=== PATIENT | female | born 1945 | race Caucasian/White ===

== ENCOUNTER 2017-02-11 08:51 | Day surgery (SDC) | payer MEDICARE, BC ==
[~2017-02-11 08:51] MED LIST: Acetaminophen 325 MG Tab PO PRN; Cataract Ophth Solution EYELF ONE; Povidone-Iodine 5% Sterile Ophth Soln 30 ML Bottle EYELF ONE
[2017-02-11] MEDS ORDERED: Phenylephrine 10% Ophth Soln 5 ML Bot EYELF PRN (09:00)
[2017-02-11] MEDS ORDERED: Acetaminophen 325 MG Tab PO PRN (09:00)
[2017-02-11] MEDS ORDERED: Phenylephrine 10% Ophth Soln 5 ML Bot EYELF ONE (09:00)
[2017-02-11] MEDS ORDERED: Sodium Chloride 0.9% 10 ML Syringe FLUSH PRN (09:00)
[2017-02-11] MEDS ORDERED: Proparacaine 0.5% Ophth Soln 15 ML Bottle EYELF ONE (09:00)
[2017-02-11] MEDS ORDERED: Ondansetron 4 MG/2 ML SDV IVPUSH PRN (09:00)
[2017-02-11] MEDS ORDERED: Cataract Ophth Solution EYELF ONE (09:00)
[2017-02-11] MEDS ORDERED: Timolol Maleate 0.5% Ophth Soln 5 ML Bottle EYELF ONE (09:00)
[2017-02-11] MEDS ORDERED: Povidone-Iodine 5% Sterile Ophth Soln 30 ML Bottle EYELF ONE ×2 (09:00→10:02)
[2017-02-11] MEDS ORDERED: Moxifloxacin 0.5% Ophth Soln 3 ML Bottle EYELF ONE (09:00)
[2017-02-11] MEDS ORDERED: Tetracaine 0.5% 2 ML Bottle EYELF ONE (10:00)
[2017-02-11] MEDS ORDERED: Dexamethasone/Neomycin/Polymyxin B Ophth Oint 3.5 GM Tube EYELF ONE (10:02)
[2017-02-11] MEDS ORDERED: Apraclonidine 0.5% Ophth Soln 5 ML Bot EYELF ONE (10:02)
[2017-02-11] MEDS ORDERED: Lidocaine 1% 30 ML SDV ONE (10:02)
[2017-02-11] MEDS ORDERED: Balanced Salt Solution Ophth Irrig 500 ML Bottle IOCULAR ONE (10:03)
[2017-02-11] MEDS ORDERED: Chondroitin Sulfate/Hyaluronate Sodium Ophth Inj 0.5 ML Syringe IOCULAR ONE (10:03)
[2017-02-11] MEDS ORDERED: Vancomycin 500 MG SDV EYELF ONE (10:03)
[2017-02-11] MEDS ORDERED: Diclofenac Sodium 0.1% Ophth Soln 5 ML Bottle EYELF ONE (10:04)
[2017-02-11] MEDS ORDERED: Dexamethasone 4 MG/ML SDV IOCULAR ONE (10:10)
[2017-02-11] MEDS ORDERED: Balanced Salt Solution Ophth Irrig 15 ML Bottle EYELF ONE (10:12)
[2017-02-11] MEDS ORDERED: Midazolam 1 MG/ML 2 ML SDV IV ONE (10:19)
[2017-02-11] MEDS ORDERED: Dexamethasone 4 MG/ML SDV IV ONE (10:19)
--- NOTE | 2017-02-11 10:57 | OR ---
DATE: 02/11/2017 PREOPERATIVE DIAGNOSIS: Cataract, left eye. POSTOPERATIVE DIAGNOSIS: Cataract, left eye. PROCEDURE: Extracapsular cataract extraction with intraocular lens implant, left eye. ANESTHESIA: Topical/local MAC. COMPLICATIONS: None. INDICATION: Mrs. Tineo was seen in the clinic. She has complained of a progressive decrease in vision. Clinical examination revealed visually significant cataract. Mrs. Tineo has a history of retinal detachment in the right eye and functions on a monocular basis. She is unhappy with her vision and requests cataract surgery. I explained risks associated with cataract surgery, including, but not limited to, infection, retinal detachment, loss of vision, need for additional surgery, and risks associated with anesthesia. We discussed implant options. She requested a monofocal implant. She is symptomatic, unhappy with her vision, requested cataract surgery, and voiced an understanding with respect to risks. OPERATIVE DESCRIPTION: After informed consent was obtained and the risks, benefits, and alternatives were explained, the patient was brought to the operative suite and topical anesthesia was administered. The patient was then prepped and draped in the sterile fashion and attention was placed on the left eye. A sterile lid speculum was placed into the left eye to allow operative exposure. A full-thickness paracentesis was made in the temporal portion of the operative eye. Preservative-free lidocaine 0.1 mL was injected into the anterior chamber followed by viscoelastic. A full-thickness corneal incision was then made into the anterior chamber. A bent needle cystotome was used to create a small vince in the anterior capsule. The capsulorrhexis forceps was then used to create a 360-degree curvilinear capsulorrhexis. The nucleus was then removed using a phacoemulsification handpiece and the remaining cortical material was then removed with irrigation and aspiration handpiece. Following removal of the cortical material, the capsular bag was then inspected and noted to be free of any holes or tears. Viscoelastic was then injected into the capsular bag and the intraocular lens was inserted into the capsular bag. The viscoelastic material was then removed from both the anterior and posterior chambers and from behind the IOL. The lens and capsular bag were then reinspected. The IOL was well centered and the capsular bag intact. The wound and paracentesis sites were inspected and hydrated with balanced saline solution. Both were found to be self- sealing. The intraocular pressure was assessed digitally and found to be within normal range. A good red reflex was noted at the completion of the procedure. No complications occurred during the operation. At the completion of the procedure, Maxitrol, Voltaren, and Iopidine drops were placed into the operative eye. A sterile eye shield was placed over the operative eye and the patient was transported to the postoperative recovery area having tolerated the procedure well. Postoperative instructions were given along with a postoperative appointment. The patient was advised to call with any questions or concerns. No complications occurred. [facility] /[id number]
[2017-02-11 13:14] VITALS: BP 100/71
== END 2017-02-11 11:20 | disposition home or self-care (01) ==
LOC: DL.SDS 08:51
PROVIDERS: ATTEND Ophthalmology
DX: H26.9 Unspecified cataract (principal); I10 Essential (primary) hypertension; E78.5 Hyperlipidemia, unspecified; F32.9 Major depressive disorder, single episode, unspecified; Z98.51 Tubal ligation status
CPT/HCPCS: 66984; A9270; J1100; J3370; J7050; 00142; C1780; J2250

== ENCOUNTER 2017-05-31 15:06 | Emergency (ER) | payer MEDICARE, BC ==
--- NOTE | 2017-05-31 15:15 | EDM.PDOC ---
ED HPI GENERAL MEDICAL PROBLEM - General Chief Complaint: Lower Extremity Injury/Pain Stated Complaint: FELL, ANKLE AND WRIST PAIN, [id number] Time Seen by Provider: 05/31/17 15:10 Source of Information: Reports: Patient, RN, RN Notes Reviewed History Limitations: Reports: No Limitations - History of Present Illness INITIAL COMMENTS - FREE TEXT/NARRATIVE: Complaining of right hand/wrist pain and right ankle pain sustained from a ground level fall just [employer]. Denies any other injury. Severity: Moderate Improves with: Reports: None Worsens with: Reports: None Associated Symptoms: Reports: No Other Symptoms Right Ankle Pain Score (Numeric/FACES): 8 - Related Data Allergies Allergy/AdvReac Type Severity Reaction Status Date / Time Penicillins Allergy Other Verified 05/31/17 15:18 Home Meds: Home Meds Aspirin [Halfprin] 81 mg PO DAILY 02/10/17 [History] Calcium Carbonate/Vitamin D3 [Calcium 500 + Vit D Caplet] 1 tab PO DAILY [History] Hydrochlorothiazide 12.5 mg PO DAILY 02/10/17 [History] Lisinopril [Prinivil] 20 mg PO DAILY 02/10/17 [History] Sertraline [Zoloft] 100 mg PO DAILY 02/10/17 [History] atorvaSTATin [Lipitor] 10 mg PO DAILY 02/10/17 [History] Past Medical History HEENT History: Reports: Cataract Cardiovascular History: Reports: High Cholesterol, Hypertension Respiratory History: Reports: None Gastrointestinal History: Reports: None Genitourinary History: Reports: None Musculoskeletal History: Reports: Arthritis Neurological History: Reports: None Psychiatric History: Reports: Depression Endocrine/Metabolic History: Reports: None Hematologic History: Reports: Anemia Immunologic History: Reports: None Oncologic (Cancer) History: Reports: None Dermatologic History: Reports: None - Infectious Disease History Infectious Disease History: Reports: Chicken Pox, Measles, Mumps - Past Surgical History HEENT Surgical History: Reports: Cataract Surgery Female Surgical History: Reports: Other (See Below) Social & Family History - Family History Cardiac: Reports: Other (See Below) Other Cardiac Family History: CAROTID STENOSIS - FATHER - Tobacco Use Smoking Status *Q: Never Smoker Second Hand Smoke Exposure: No - Caffeine Use Caffeine Use: Reports: Coffee - Alcohol Use Days Per Week of Alcohol Use: 5 - Recreational Drug Use Recreational Drug Use: No Review of Systems - Review of Systems Review Of Systems: ROS reveals no pertinent complaints other than HPI. ED EXAM, GENERAL - Physical Exam Exam: See Below Exam Limited By: No Limitations General Appearance: Alert, WD/WN, No Apparent Distress Head: Atraumatic, Normocephalic Neck: Other (full range of motion.) Respiratory/Chest: No Respiratory Distress Cardiovascular: Normal Peripheral Pulses Back Exam: Normal Inspection, Full Range of Motion, NT Extremities: Other (Contusion with tenderness and mild swelling to dorsum of right hand with painful ROM of right wrist and MJPJs. Tenderess at lateral right ankle swelling and faint bruising.) Neurological: Alert, Oriented, CN II-XII Intact, Normal Cognition, Normal Gait, Normal Reflexes, No Motor/Sensory Deficits Psychiatric: Normal Affect, Normal Mood Skin Exam: Warm, Dry, Intact, Normal Color, No Rash Course - Vital Signs Last Recorded V/S: Last Vital Signs Temp 37.1 C 05/31/17 15:19 Pulse 75 05/31/17 15:19 Resp 16 05/31/17 15:19 BP 117/67 05/31/17 15:19 Pulse Ox 97 05/31/17 15:19 - Orders/Labs/Meds Meds: Medications Discontinued Medications Generic Name Dose Route Start Last Admin Trade Name Freq PRN Reason Stop Dose Admin Ibuprofen 600 mg 05/31/17 17:55 05/31/17 18:03 Motrin PO 05/31/17 17:56 600 mg ONETIME ONE Administration - Radiology Interpretation Free Text/Narrative:: Right ankle: Per rad report reveals severe sprain. Right wrist: Per rad report reveals soft tissue swelling dorsum of the wrist surrounding what appears to be a nondisplaced avulsion fracture of the triguetrum. Departure - Departure Time of Disposition: 17:56 Disposition: Home, Self-Care 01 Condition: Good Clinical Impression: Fracture of right carpal bone Qualifiers: Encounter type: initial encounter Carpal bone: triquetrum Fracture type: closed Fracture alignment: nondisplaced Qualified Code(s): S62.114A - Nondisplaced fracture of triquetrum [cuneiform] bone, right wrist, initial encounter for closed fracture Right ankle sprain Qualifiers: Encounter type: initial encounter Involved ligament of ankle: unspecified ligament Qualified Code(s): S93.401A - Sprain of unspecified ligament of right ankle, initial encounter - Discharge Information Instructions: Wrist Fracture Treated With Immobilization, [id number], Ankle Sprain, [id number] Forms: ED Department Discharge Additional Instructions: Rest, ice and elevate right hand and right ankle. MITCH wrap right ankle as needed. Do not remove right hand splint. Follow up with [facility]. Call Wednesday morning for appointment.
[2017-05-31 15:22] VITALS: BP 117/67
--- NOTE | 2017-05-31 15:53 | CR ---
Clinical history: 71[place] Interpretation: 3 views right ankle confirm some asymmetric soft tissue swelling, anterolaterally. No sign of underlying fracture or disruption of the tibial talar mortise joint symmetry. No foreign bodies. Bone spurs identified incidentally the insertion of the Achilles tendon and plantar aponeurosis on t he os calcis. CONCLUSION: Severe sprain.
--- NOTE | 2017-05-31 16:00 | CR ---
Clinical history: 71-year-old female injured in a fall. Interpretation: 3 views right wrist confirm osteoporosis with chronic arthritic degenerative changes first carpal metacarpal; first, second, third and fourth metacarpophalangeal; and all interphalange al joints right hand. *Soft tissue swelling dorsum of the wrist surrounding what appears to be a nondisplaced avulsion fra cture of the triquetrum. No other fracture or dislocation distal right radius/ulna, right wrist bones or metacarpals of the h and. CONCLUSION: Abnormal (see above).
[2017-05-31] MEDS ORDERED: Ibuprofen 600 MG Tab PO ONE (17:55)
== END 2017-05-31 18:13 | disposition home or self-care (01) ==
LOC: DL.ED 15:06
DX: S62.111A Displaced fracture of triquetrum [cuneiform] bone, right wrist, initial encounter for closed fracture (principal); S93.401A Sprain of unspecified ligament of right ankle, initial encounter; E78.00 Pure hypercholesterolemia, unspecified; I10 Essential (primary) hypertension; M19.90 Unspecified osteoarthritis, unspecified site; Z86.2 Personal history of diseases of the blood and blood-forming organs and certain disorders involving the immune mechanism; Z88.0 Allergy status to penicillin; Z79.899 Other long term (current) drug therapy; W19.XXXA Unspecified fall, initial encounter
CPT/HCPCS: 73110; 73610; 99283; A9270

== ENCOUNTER → 2019-04-21 | Outpatient (CLI) | payer MEDICARE, BC ==
--- NOTE | 2019-04-21 12:47 | CR ---
CLINICAL HISTORY: 73-year-old female complaining of low back pain. INTERPRETATION: Complete (5 views) lumbosacral spine exam confirms bony demineralization consistent with age and gender. Subtle anterior compression of T12 vertebral body with hypertrophic marginal spur indicating old compression fracture. Normal height and alignment of the 5 lumbar vertebra. No lumbar fractures or dislocation. (Subtle dorsal lumbar scoliosis) Chronic lower lumbar L4-5 disc disease, i.e., interspace narrowing, endplate sclerosis and marginal spondylosis. NOTE: Asymmetric narrowing of the right hip joint with associated dense bony eburnation typical of chronic arthritic degeneration. CONCLUSION: Old T12 compression fracture. Chronic L4-5 disc disease. Abnormal right hip.
--- NOTE | 2019-04-21 12:47 | CR ---
CLINICAL HISTORY: 73-year-old female with low back pain. INTERPRETATION: Chronic L4-5 and L5-S1 lumbar disc disease with reactive hypertrophic arthritic changes, particularly on the left. Asymmetric degenerative changes right hip joint. Symmetric spacing normal-appearing SI joints. No sign of pathologic skeletal lesion, sacral fracture or segmental dislocation. No foreign bodies.
== END ==
LOC: DL.CLIN 10:03
PROVIDERS: ATTEND Physician Assistant Medical
DX: M54.5 Low back pain (principal); M51.9 Unspecified thoracic, thoracolumbar and lumbosacral intervertebral disc disorder; R93.7 Abnormal findings on diagnostic imaging of other parts of musculoskeletal system; Z87.81 Personal history of (healed) traumatic fracture
CPT/HCPCS: 72110; 72220

== ENCOUNTER 2021-10-18 12:08 | Emergency (ER) | payer MEDICARE, BC ==
--- NOTE | 2021-10-18 12:21 | EDM.PDOC ---
ED HPI GENERAL MEDICAL PROBLEM - General Stated Complaint: SIDE PAIN / CONSTIPATION Time Seen by Provider: 10/18/21 12:40 Source of Information: Reports: Patient History Limitations: Reports: No Limitations - History of Present Illness INITIAL COMMENTS - FREE TEXT/NARRATIVE: ED with c/o RLQ abdominal pain, describes as dull ache started this am. Recent constipation, took exlax. BM last night. passing sandee no distension. No urinary sx. No ratation of pain. No fever. Concerned if appendicitis. no prior hx of colonoscopy, Denies hx of diverticulitis. - Related Data Allergies Allergy/AdvReac Type Severity Reaction Status Date / Time Penicillins Allergy Other Verified 10/18/21 12:31 Home Meds: Home Meds Aspirin [Halfprin] 81 mg PO DAILY 02/10/17 [History] Calcium Carbonate/Vitamin D3 [Calcium 500 + Vit D Caplet] 1 tab PO DAILY 02/10/17 [History] Hydrochlorothiazide 12.5 mg PO DAILY 02/10/17 [History] Lisinopril [Prinivil] 20 mg PO DAILY 02/10/17 [History] Sertraline [Zoloft] 100 mg PO DAILY 02/10/17 [History] atorvaSTATin [Lipitor] 10 mg PO DAILY 02/10/17 [History] Past Medical History HEENT History: Reports: Cataract Cardiovascular History: Reports: High Cholesterol, Hypertension Respiratory History: Reports: None Gastrointestinal History: Reports: None Genitourinary History: Reports: None Musculoskeletal History: Reports: Arthritis Neurological History: Reports: None Psychiatric History: Reports: Depression Endocrine/Metabolic History: Reports: None Hematologic History: Reports: Anemia Immunologic History: Reports: None Oncologic (Cancer) History: Reports: None Dermatologic History: Reports: None - Infectious Disease History Infectious Disease History: Reports: Chicken Pox, Measles, Mumps - Past Surgical History HEENT Surgical History: Reports: Cataract Surgery Female Surgical History: Reports: Other (See Below) Social & Family History - Family History Family Medical History: No Pertinent Family History Cardiac: Reports: Other (See Below) Other Cardiac Family History: CAROTID STENOSIS - FATHER - Caffeine Use Caffeine Use: Reports: Coffee ED ROS GENERAL - Review of Systems Review Of Systems: Comprehensive ROS is negative, except as noted in HPI. ED EXAM, GENERAL - Physical Exam Exam: See Below Exam Limited By: No Limitations General Appearance: Alert, No Apparent Distress Eye Exam: Bilateral Eye: EOMI, PERRL Ears: Normal External Exam Nose: Normal Inspection Throat/Mouth: Normal Inspection Head: Atraumatic, Normocephalic Neck: Normal Inspection Respiratory/Chest: No Respiratory Distress, Normal Breath Sounds Cardiovascular: Normal Peripheral Pulses, Regular Rate, Rhythm GI/Abdominal: Normal Bowel Sounds, Soft, Non-Tender, No Distention, No Mass. No: Distended, Guarding, Rigid, Rebound, Tender, Abnormal Bowel Sounds Neurological: Alert, Oriented Psychiatric: Normal Affect, Normal Mood Skin Exam: Warm, Dry, Intact, Normal Color Course - Vital Signs Last Recorded V/S: Last Vital Signs Temp 98.7 F 10/18/21 12:32 Pulse 80 10/18/21 12:32 Resp 18 10/18/21 12:32 BP 163/92 H 10/18/21 12:47 Pulse Ox 98 10/18/21 12:32 - Orders/Labs/Meds Labs: Laboratory Tests 10/18/21 10/18/21 10/18/21 Range/Units 13:07 13:25 13:25 WBC 12.9 H (5.0-10.0) 10^3/uL RBC 4.11 L (4.2-5.4) 10^6/uL Hgb 13.3 (12.0-16.0) g/dL Hct 37.5 (37.0-47.0) % MCV 91.2 D (80-100) fL MCH 32.4 (27.0-34.0) pg MCHC 35.5 H (33.0-35.0) g/dL Plt Count 215 (150-450) 10^3/uL Neut % (Auto) 86.4 H (42.2-75.2) % Lymph % (Auto) 5.6 L (20.5-50.1) % [place] % (Auto) 7.4 (2-8) % Eos % (Auto) 0.5 L (1.0-3.0) % Baso % (Auto) 0.1 (0.0-1.0) % Sodium 124 L D (136-145) mmol/L Potassium 3.2 L (3.5-5.1) mmol/L Chloride 89 L (98-107) mmol/L Carbon Dioxide 27 (21-32) mmol/L Anion Gap 11.2 (7-13) mEq/L BUN 12 (7-18) mg/dL Creatinine 0.61 (0.55-1.02) mg/dL Est Cr Clr Drug Dosing 71.70 mL/min Estimated GFR (MDRD) > 60 BUN/Creatinine Ratio 19.7 (No establ ref range) Glucose 111 H (70-99) mg/dL Lactic Acid (0.4-2.0) mmol/L Calcium 8.7 (8.5-10.1) mg/dL Total Bilirubin 0.8 (0.2-1.0) mg/dL AST 12 L (15-37) U/L ALT 17 (14-59) U/L Alkaline Phosphatase 79 (46-116) U/L Total Protein 7.2 (6.4-8.2) g/dL Albumin 4.0 (3.4-5.0) g/dL Globulin 3.2 Albumin/Globulin Ratio 1.3 Urine Color Yellow (YELLOW) Urine Appearance Clear (CLEAR) Urine pH 6.0 (5.0-9.0) Ur Specific [place] >= 1.030 (1.005-1.030) Urine Protein 30 H (NEGATIVE) Urine Glucose (UA) Negative (NEGATIVE) Urine Ketones 40 H (NEGATIVE) Urine Occult Blood Trace-intact H (NEGATIVE) Urine Nitrite Negative (NEGATIVE) Urine Bilirubin Negative (NEGATIVE) Urine Urobilinogen 0.2 (0.2-1.0) mg/dL Ur Leukocyte Esterase Negative (NEGATIVE) Urine RBC 5-10 H (0-5) /HPF Urine WBC 0-5 (0-5/HPF) /HPF Ur Epithelial Cells Moderate H (NOT SEEN) /HPF Urine Bacteria Rare (0-FEW/HPF) /HPF 11/20/21 Range/Units 13:25 WBC (5.0-10.0) 10^3/uL RBC (4.2-5.4) 10^6/uL Hgb (12.0-16.0) g/dL Hct (37.0-47.0) % MCV (80-100) fL MCH (27.0-34.0) pg MCHC (33.0-35.0) g/dL Plt Count (150-450) 10^3/uL Neut % (Auto) (42.2-75.2) % Lymph % (Auto) (20.5-50.1) % [place] % (Auto) (2-8) % Eos % (Auto) (1.0-3.0) % Baso % (Auto) (0.0-1.0) % Sodium (136-145) mmol/L Potassium (3.5-5.1) mmol/L Chloride (98-107) mmol/L Carbon Dioxide (21-32) mmol/L Anion Gap (7-13) mEq/L BUN (7-18) mg/dL Creatinine (0.55-1.02) mg/dL Est Cr Clr Drug Dosing mL/min Estimated GFR (MDRD) BUN/Creatinine Ratio (No establ ref range) Glucose (70-99) mg/dL Lactic Acid 1.0 (0.4-2.0) mmol/L Calcium (8.5-10.1) mg/dL Total Bilirubin (0.2-1.0) mg/dL AST (15-37) U/L ALT (14-59) U/L Alkaline Phosphatase (46-116) U/L Total Protein (6.4-8.2) g/dL Albumin (3.4-5.0) g/dL Globulin Albumin/Globulin Ratio Urine Color (YELLOW) Urine Appearance (CLEAR) Urine pH (5.0-9.0) Ur Specific [place] (1.005-1.030) Urine Protein (NEGATIVE) Urine Glucose (UA) (NEGATIVE) Urine Ketones (NEGATIVE) Urine Occult Blood (NEGATIVE) Urine Nitrite (NEGATIVE) Urine Bilirubin (NEGATIVE) Urine Urobilinogen (0.2-1.0) mg/dL Ur Leukocyte Esterase (NEGATIVE) Urine RBC (0-5) /HPF Urine WBC (0-5/HPF) /HPF Ur Epithelial Cells (NOT SEEN) /HPF Urine Bacteria (0-FEW/HPF) /HPF Meds: Medications Discontinued Medications Generic Name Dose Route Start Last Admin Trade Name Freq PRN Reason Stop Dose Admin Sodium Chloride 500 mls @ 500 mls/hr 10/18/21 15:23 10/18/21 15:31 Normal Saline IV 10/18/21 16:22 500 mls/hr .BOLUS ONE Administration Iopamidol 100 ml 10/18/21 14:12 10/18/21 14:36 Iopamidol 612 Mg/Ml 100 Ml Bottle IVPUSH 10/18/21 14:13 75 ml ONETIME ONE Administration Potassium Chloride 20 meq 10/18/21 16:18 10/18/21 16:29 Potassium Chloride 10 Meq Tab.Er PO 10/18/21 16:19 20 meq ONETIME ONE Administration Departure - Departure Time of Disposition: 16:19 Disposition: Home, Self-Care 01 Condition: Good Clinical Impression: Abdominal pain - Discharge Information *PRESCRIPTION DRUG MONITORING PROGRAM REVIEWED*: No *COPY OF PRESCRIPTION DRUG MONITORING REPORT IN PATIENT WILLY: No Instructions: Constipation, Adult, [id number], Abdominal Pain, Adult, [id number] Additional Instructions: increase fluids increase fruit and fiber in diet miralax one capful daily in 8 ounces liquid as needed for constipation tylenol 650mg every 4-6 hours as needed for discomfort Sepsis Event Note (ED) - Focused Exam Vital Signs: Vital Signs Temp Pulse Resp BP Pulse Ox 10/18/21 12:47 163/92 H 10/18/21 12:32 98.7 F 80 18 169/102 H 98
[2021-10-18 12:45] VITALS: PULSE 80
[2021-10-18 12:47] VITALS: BP 163/92
[2021-10-18 13:56] LABS: ANION GAP 11.2 mEq/L (7-13); CHLORIDE,CL 89 mmol/L (98-107); SODIUM,NA 124 mmol/L (136-145)
[2021-10-18] MEDS ORDERED: Iopamidol 612 MG/ML 100 ML Bottle IVPUSH ONE (14:12)
[2021-10-18] MEDS ORDERED: Sodium Chloride 0.9% 500 ML IV ONE (15:23)
--- NOTE | 2021-10-18 16:10 | CT ---
PROCEDURE INFORMATION: Exam: CT Abdomen And Pelvis With Contrast Exam date and time: 10/18/2021 2:33 PM Age: 76 years old Clinical indication: Abdominal pain; Localized; Right lower quadrant (rlq); Patient HX: History of breast cancer; Additional info: Rlq pain TECHNIQUE: Imaging protocol: Computed tomography of the abdomen and pelvis with contrast. Radiation optimization: All CT scans at this facility use at least one of these dose optimization techniques: automated exposure control; mA and/or kV adjustment per patient size (includes targeted exams where dose is matched to clinical indication); or iterative reconstruction. Contrast material: ISOVUE 300; Contrast volume: 75 ml; Contrast route: INTRAVENOUS (IV); COMPARISON: No relevant prior studies available. FINDINGS: Lungs: No significant abnormality in the visualized lung bases. Heart: Mildly enlarged. Liver: No significant abnormality. Gallbladder and bile ducts: No significant abnormality. Pancreas: No significant abnormality. Spleen: No significant abnormality. Adrenal glands: No significant abnormality. Kidneys and ureters: No acute abnormality. Small, simple-appearing low density lesions in the left kidney, which are most likely benign renal cysts. No followup is recommended, based on imaging criteria. See comment below. Stomach and bowel: No acute abnormality. No acute abnormality of the stomach or duodenum. No acute abnormality of the small bowel. No acute abnormality of the colon. Appendix: Appendix is seen, and is within normal limits in appearance. Intraperitoneal space: No evidence of free air or free fluid. Vasculature: No acute abnormality. Atherosclerotic calcification. Lymph nodes: No evidence of diffuse pathologic lymphadenopathy. Urinary bladder: No significant abnormality. Reproductive: No acute abnormality of the uterus. No evidence of large adnexal masses. Bones/joints: No acute bony abnormality chronic 50% compression fracture of L1, associated with mild vertebral retropulsion. Marked osteoarthritic changes of the hips bilaterally. Soft tissues: No acute abnormality. IMPRESSION: 1. No evidence of a significant acute abnormality. No definite cause for pain identified. 2. See above for remaining chronic and/or incidental findings. COMMENTS: Consistent with the [employer]'s Incidental Findings Committee white paper (J Am Mahesh Radiol 2018): Any incidental renal lesion less than 1 cm or classified as too small to characterize, or any incidental cystic renal lesion characterized as simple-appearing, is likely benign. No follow-up imaging is recommended for these lesions per consensus recommendations based on imaging criteria.
[2021-10-18] MEDS ORDERED: Potassium Chloride 10 MEQ Tab.ER PO ONE (16:18)
== END 2021-10-18 17:19 | disposition home or self-care (01) ==
LOC: DL.ED 12:08
DX: R10.31 Right lower quadrant pain (principal); E78.00 Pure hypercholesterolemia, unspecified; I10 Essential (primary) hypertension; Z88.0 Allergy status to penicillin; Z79.82 Long term (current) use of aspirin; Z79.899 Other long term (current) drug therapy
CPT/HCPCS: 36415; 74177; 80053; 81001; 83605; 85025; 99284-25; A9270-GY; J7040; Q9967